=== PATIENT | female | born 1995 | race Caucasian/White ===

== ENCOUNTER → 2018-08-06 14:08 | Outpatient (CLI) | payer SELFPAY ==
[2018-08-06 15:42] LABS: Hematocrit 41.2 % (37-47); Hemoglobin 13.6 g/dl (12.0-15.0)
[2018-08-06 16:17] LABS: Free T3 2.9 pg/mL (2.18-3.98); T4 Free Direct 1.08 ng/dL (0.76-1.46); Thyroid Stim Hormone (TSH) 0.56 uIU/mL (0.358-3.74)
== END ==
PROVIDERS: Visit Provider Obstetrics & Gynecology
DX: N92.6 Irregular menstruation, unspecified (principal)
CPT/HCPCS: 36415; 84439; 84443; 84481; 85014; 85018

== ENCOUNTER 2019-09-25 21:20 | Outpatient (CLI) | payer OTHER, SELFPAY ==
[2019-09-25 22:07] VITALS: BMI 36.3
--- NOTE | 2019-09-26 13:17 | OB.TRI.NOTE ---
- Problem List (1) 39 weeks gestation of Status: Acute (2) Uterine contractions during Status: Acute History of Present Illness Date of Service: 09/25/19 Was patient seen by the physician?: No Reason For Visit: RULE OUT LABOR Date of Service: 09/25/19 Final MANDIE: 10/01/19 Gestational age: 39 Weeks and 2 Days History of Present Illness: who presented with ctx's for r/o labor Allergies No Known Allergies Allergy (Verified 09/25/19 22:09) NST - FHR Rate Baby A Baseline: 125 Variability:: Moderate Accelerations:: 15 x 15 Decelerations:: None NST Reactive:: Yes Uterine Activity:: Irritability with occasional ctx's Impression/Plan - Labor ruled out - NST reactive - D/c home with return precautions
== END 2019-09-25 23:47 | disposition home or self-care (01) ==
LOC: WPOUT 21:56 → WP 21:57
PROVIDERS: Referring Provider Obstetrics & Gynecology; Visit Provider Obstetrics & Gynecology
DX: O47.1 False labor at or after 37 completed weeks of gestation (principal); Z3A.39 39 weeks gestation of pregnancy
CPT/HCPCS: 59025; 59050; 99218; G0378

== ENCOUNTER 2019-10-05 05:25 | Inpatient (IN) | payer OTHER, SELFPAY ==
[2019-10-05 06:21] VITALS: BMI 36.8
[2019-10-05] MEDS: Lactated Ringers 1,000 ML 50 ML IV (06:25)
[2019-10-05] MEDS: Lactated Ringers 500 ML 999 ML IV (06:27)
[2019-10-05 06:38] LABS: Absolute Lymphocyte Count 2.51 X10^3/uL (0.83-4.51); Absolute Neutrophil Count 9.5 X10^3/uL (2.0-7.7); Basophil# 0.04 X10^3/uL; Basophil% 0.3 % (0-1); Eosinophils% 0.7 % (0-5); Hematocrit 36.5 % (37-47); Hemoglobin 11.7 g/dL (12.0-15.0); Lymphocyte # 2.51 X10^3/ul (4.0); Lymphocyte % 18.6 % (19-41); Mean Corp Hgb Conc 32.1 g/dL (32-36); Mean Corpuscular Hgb 23.9 pg (27.0-32.0); Mean Corpuscular Volume 74.5 fL (81-99); Mean Platelet Vol. 10.7 fl (6.2-12.0); Monocyte# 1.22 X10^3/uL; NRBC Flagged by Analyzer 0 % (0-5); Neutrophil # 9.52 X10^3/uL (2.7-7.7); Neutrophil % 70.4 % (47-70); Platelet Count 270 K/mm3 (150-450); RBC Distribution Width CV 14.1 % (11.6-14.6); RBC Distribution Width SD 37.6 fl (35.1-43.9); White Blood Count 13.5 K/mm3 (4.4-11.0)
[2019-10-05] MEDS: miSOPROStol 25 MCG TABLET PO ×2 (09:59→14:13)
--- NOTE | 2019-10-05 10:12 | HP.PCM_ITS ---
- Problem List (1) 40 weeks gestation of Status: Acute (2) Primiparous Status: Acute History Date of Admission: 10/05/19 Final MANDIE: 10/01/19 Gestational age: 40 Weeks and 4 Days History of this : This is a 23 year-old, G 1, P 0, at 40 weeks gestational age who presents with ctx's q 2-3 min. Ctx's have lessened since coming in and she is now comfortable. No vb, lof. Good FM. She is scheduled for an induction tomorrow. Medical History: Medical History (Last Updated 10/05/19 @ 10:13 by Crys Power DO) Anemia D64.9 History of concussion Z87.820 History of tooth extraction K08.409 Allergies No Known Allergies Allergy (Verified 10/05/19 07:24) Home Medications: Home Medications Prenatabs FA 1 tab PO DAILY 09/25/19 Smoking Status: Never smoker Number of Fetus(es): 1 NST - FHR Rate Baby A NST Reactive:: Yes FHR Category:: Category I Uterine Activity:: Occasional ctx's History Past Pregnancies: Past Pregnancies Delivery Date Name GA/ Weeks Outcome Route Wt Infant Sex Labor Length Anesthesia Delivery Location Provider FOB Labs: GBS pos 1 hr GTT 77 Hgb 11.7 A positive Negative antibody screen Syphilis NR RI Hep B neg HIV NR UDS neg GC/CT neg Urine cx neg Expected Delivery Method: Spontaneous Vaginal Review of Systems Gynecological: Reports: Vaginal discharge - Mucous, - - +Ctx's Physical Exam General: Alert, No apparent distress, - - Comfortable HEENT: Atraumatic Lungs: Normal air movement Abdomen: Soft, Non Tender, Gravid Extremities:: No edema Neurological: Neuro grossly intact VELOCITY [employer]ER: Normal external genitalia Estimated gestational size: Appropriate for gestational size Presentation: Cephalic Cervix Dilation (cm): 1.5 Station: -2 Effacement (%): 70 Assessment/Plan All Active Problems 39 weeks gestation of (Acute) Uterine contractions during (Acute) 40 weeks gestation of (Acute) Primiparous (Acute) This is a 23 year-old, G 1, P 0, at 40 weeks gestational age who presents with ctx's. Likely in early labor. She is scheduled for an induction tomorrow night. Patient desires to stay today for an induction. - Admit for routine intrapartum care - Will start Cytotec - GBS positive, will start PCN with cervical change - Pt does not want epidural. Desires tub and nitrous oxide for pain control - Pelvis adequate and fetus palpates AGA, anticipate vaginal delivery
[2019-10-05] MEDS: 0.9% Saline Lock 10 ML Syringe IV (18:14)
[2019-10-05] MEDS: Oxytocin 30 units/NS 500 ml 30 UNITS/500 ML IV.SOLN IV (18:33)
[2019-10-06] MEDS: Lactated Ringers 500 ML 999 ML IV ×3 (03:03→19:38)
[2019-10-06] MEDS: Lactated Ringers 1,000 ML 200 ML IV ×3 (09:42→23:45)
--- NOTE | 2019-10-06 10:08 | PCM.PN.BLA ---
Progress Note Cvx remains 3 cm after 2 doses of cytotec, and pit at 18 mu/min. Pt has been refusing AROM. Discussed with patient options: either AROM to place IUPC, or discharge home. Reviewed r/b of both options. Gave her time to discuss with family members. She desires AROM. Cvx /-2, head well applied. AROM performed for clear fluid. IUPC and FSE placed. Category 1 tracing.
[2019-10-06] MEDS: Nalbuphine 10 MG/ML Ampul IV (11:25)
[2019-10-06] MEDS: fentaNYL-bupivacaine (epidural) 100 ML BAG EPIDURAL ×4 (12:03→22:30)
--- NOTE | 2019-10-06 16:11 | PCM.PN.BLA ---
Progress Note At bedside to check on pt. She is sleeping comfortably with epidural in place. Last cervical exam was per RN and pt is 8 cm dilated. Continue current management.
[2019-10-06] MEDS: 0.9% Saline Lock 10 ML Syringe IV (16:17)
--- NOTE | 2019-10-06 16:30 | PCM.PN.BLA ---
Progress Note Pt with prolonged decel. At bedside to assess, Cvx 9/100/0. Pt placed in right lateral position. Anticipate vaginal delivery.
[2019-10-07] VITALS (31 sets, daily range): BP systolic 106–130; BP diastolic 57–82; PULSE 61–106; RESP 14–18; TEMP 36.1–37; O2SAT 93–99
[2019-10-07] MEDS: Ondansetron 4 MG/2 ML Vial IV
[2019-10-07] MEDS: Sodium Citrate/Citric Acid 30 ML UDC PO (00:12)
--- NOTE | 2019-10-07 00:30 | PCM.PN.BLA ---
Progress Note Delayed entry. At bedside to check pt and she remains 9 cm dilated. Recommended section given failure to progress and intolerance to labor. Reviewed risks, benefits, alternatives and patient consented and desires to proceed with a section.
[2019-10-07] MEDS: Cefazolin 2 GM in 0.9% Normal Saline 100 ML IV (00:39)
--- NOTE | 2019-10-07 02:01 | PCM.OPRPT ---
Problem List (1) 40 weeks gestation of Status: Acute (2) Primiparous Status: Acute Report of Operation Date of Procedure: 10/07/19 Pre-Operative Diagnosis: 40 week gestation, primparous patient, elective induction Post-Operative Diagnosis: As above, failure to progress in labor, intolerance to labor Surgery/Procedure Performed:: PLTCS via pfannesnstiel incision Description of Surgical Findings:: Viable male in cephalic presentation. Clear fluid. Normal-appearing uterus, bilateral tubes, bilateral ovaries. Type of Anesthesia:: Epidural Special Medications: None Specimen's removed: Placenta Drains: Dias Estimated Blood Loss (mL): 900 Fluids Replaced: 1999 Description of Procedure: Indications: Patient is a G1, P0 who presented at 40 weeks gestation for an elective induction per patient request. Her induction was started with Cytotec, followed by Pitocin. She progressed to 9 cm dilated. heart tracing showed occasional late decelerations, requiring the Pitocin to be turned off twice. She remained 9 cm dilated for about 6 hours. Given failure to progress, a section was recommended. Procedure: Patient was taken to the operating room where she was placed in dorsal position with a leftward tilt. She was prepped and draped in the usual sterile fashion. Epidural anesthesia was found to be adequate. A Pfannenstiel skin incision was made with a scalpel and carried down to the underlying layer of fascia using the Bovie. The fascia was incised in the midline and extended laterally using Byrne scissors. The fascia was dissected off of the rectus muscles. The rectus muscles were in the midline. The peritoneum was entered bluntly. A bladder flap was created. A low transverse incision was made on the uterus with the scalpel. The infant was delivered in cephalic presentation without any force or delay. Viable male infant was delivered atraumatically, and cord was clamped and cut after a 60 second delay. The was handed off to the nursery staff. The uterus was exteriorized and cleared of all clot and debris. The uterine incision was closed with Vicryl in a running locked fashion noting an extension into the cervix along the patient's right side. Several additional aburam-zo-zldoa sutures were placed to achieve hemostasis. The uterus was placed back into the abdomen. Hemostasis was again noted and Joseline was placed over the incision. Peritoneum was unable to be reapproximated. The fascia was closed in usual fashion with Vicryl in a running layer. The subcutaneous space was irrigated and made hemostatic. The subcutaneous space was reapproximated using Vicryl in a running fashion. The skin was closed in a subcuticular fashion. Steri-Strips and a dressing were placed. Instrument counts were correct. The patient tolerated the procedure well was taken to the recovery room in good condition. Grafts/Implants Used: None - Complications None - Admit VTE Documentation VTE Present on Admission: No VTE Mechan Device Prophylaxis: SCD's Delivery Classification: MARY JANE Gestational age: Indications for : Failure to Progress Amniotic Membrane Rupture Type: Artificial Amniotic Fluid Description: Clear Drain: Dias to straight drain Cord Entanglement: None Cord Vessel Description: 3 Vessels Esitmated Blood Loss (ml): 900 Gender: Male Delayed cord clamping: Yes Antibiotic Given: Ancef 2 grams IV x1, Zithromax 500 mg/5 mL X1 Pt instructed on risks of surgery: Bleeding, Infection, Injury to surrounding structure(s) including bowel and bladder Complications: None
[2019-10-07] MEDS: Methylergonovine 0.2 MG/ML Ampul IM (02:26)
[2019-10-07] MEDS: Oxytocin 30 units/NS 500 ml 30 UNITS/500 ML IV.SOLN 167 UNITS IV (02:43)
[2019-10-07] MEDS: Lactated Ringers 1,000 ML 100 ML IV (05:25)
--- NOTE | 2019-10-07 06:19 | NURSING ---
Pt able to maintain O2 saturation above 90% when awake but when sleeping, O2 saturation drops to 88%. Improves when pt awakened and takes deep breath. O2 2L NC placed on pt.
--- NOTE | 2019-10-07 07:28 | NURSING ---
Epidural catheter removed with blue tip intact.
[2019-10-07] MEDS: Ketorolac 30 MG/ML Syringe IV ×3 (08:52→20:48)
[2019-10-07] MEDS: Enoxaparin 40 MG/0.4 ML Syringe SC (15:20)
--- NOTE | 2019-10-07 18:03 | NURSING ---
pt straight cath for 700 cc
[2019-10-07] MEDS: 0.9% Saline Lock 10 ML Syringe IV (20:48)
[2019-10-08 01:00] VITALS: PULSE 94; RESP 16; O2SAT 96
[2019-10-08] MEDS: Ketorolac 30 MG/ML Syringe IV ×3 (02:38→15:30)
[2019-10-08] MEDS: 0.9% Saline Lock 10 ML Syringe IV ×2 (02:38→07:59)
[2019-10-08 03:22] VITALS: BP 102/55; PULSE 95; RESP 18; TEMP 37; O2SAT 97
[2019-10-08 04:00] LABS: Hematocrit 28.7 % (37-47); Mean Corp Hgb Conc 31.4 g/dL (32-36); Mean Corpuscular Hgb 23.3 pg (27.0-32.0); Mean Corpuscular Volume 74.4 fL (81-99); Mean Platelet Vol. 10.5 fl (6.2-12.0); Platelet Count 195 K/mm3 (150-450); RBC Distribution Width CV 14.7 % (11.6-14.6); RBC Distribution Width SD 38.8 fl (35.1-43.9); Red Blood Count 3.86 M/mm3 (4.2-5.4); White Blood Count 17.1 K/mm3 (4.4-11.0)
[2019-10-08 07:50] VITALS: BP 110/67; PULSE 78; RESP 18; TEMP 36.7; O2SAT 99
--- NOTE | 2019-10-08 08:37 | PCM.PN.OB ---
Patient Problems: Active and Suspected Problems (Last Updated 10/05/19 @ 10:13 by Crys Power DO) 40 weeks gestation of (Acute) Primiparous (Acute) Subjective: Patient doing well. Pain is controlled with Toradol. She is ambulating and voiding without difficulty. Lochia normal. She is breast-feeding. She denies lightheadedness, dizziness, chest pain, shortness of breath, leg pain. - Physical Exam Vitals/I&O's: Vital Signs Temp Pulse Resp BP Pulse Ox 98.0 F 78 18 110/67 99 10/08/19 07:50 10/08/19 07:50 10/08/19 07:50 10/08/19 07:50 10/08/19 07:50 Oxygen Flow Rate (L/min) 2 Oxygen Delivery Method Room Air Weight: 242 lb Body Mass Index (BMI) 36.8 Intake and Output for Last 24 Hours 10/06/19 10/07/19 10/08/19 23:59 23:59 23:59 Intake Total 5501.14 / 5501.14 1644.80 / 1644.80 Output Total 900 / 900 1950 / 1950 Balance 4601.14 / 4601.14 -305.20 / -305.20 General: Alert, No apparent distress HEENT: Atraumatic Abdomen: - - No assessed as was sleeping on maternal abdomen Extremities: No edema, No Calf Tenderness Neurological: Neuro grossly intact Psych/Mental Status: Normal Affect, Appropriate Laboratory Results 10/08/19 03:30: WBC 17.1 H, RBC 3.86 L, Hgb 9.0 L, Hct 28.7 L, MCV 74.4 L, MCH 23.3 L, MCHC 31.4 L, RDW Std Deviation 38.8, RDW Coeff of Gee 14.7 H, Plt Count 195, MPV 10.5 Current Medications Acetaminophen (Tylenol) 1,000 mg PO Q8H PRN PRN Reason: Pain Score 1-3/10 Bisacodyl (Dulcolax) 10 mg RECTAL UD PRN PRN Reason: If no BM Enoxaparin Sodium (Lovenox) 40 mg SC DAILY EUN Last Admin: 10/07/19 15:20 Dose: 40 mg Documented by: Hydrocortisone (Hytone) 1 applic TOPICAL TID PRN PRN; Protocol PRN Reason: Discomfort Naloxone HCl 4 mg/ Dextrose 504 mls @ 0 mls/hr IV .Q0M PRN; Protocol PRN Reason: Respiratory depression Ibuprofen (Motrin) 600 mg PO Q6H PRN PRN PRN Reason: Pain Score 1-3/10 Ketorolac Tromethamine (Toradol) 30 mg IV Q6H EUN Stop: 10/09/19 02:01 Last Admin: 10/08/19 07:59 Dose: 30 mg Documented by: Methylergonovine Maleate (Methergine) 0.2 mg IM X1 PRN PRN Reason: Uterine Atony Last Admin: 10/07/19 02:26 Dose: 0.2 mg Documented by: Naloxone HCl (Narcan) 0.02 mg IV Q1M PRN PRN Reason: RR <10 and pt unresponsive Ondansetron HCl (Zofran) 4 mg IV Q4H PRN PRN PRN Reason: Nausea Oxycodone HCl (Oxyir) 5 - 10 mg PO Q4H PRN PRN PRN Reason: Pain Score 4-10/10 Prochlorperazine Edisylate (Compazine Iv) 10 mg IV Q6H PRN PRN PRN Reason: NAUSEA Senna/Docusate Sodium (Senokot-S, [place]-Colace) 0 tablet PO DAILY PRN PRN Reason: Constipation Simethicone (Mylicon) 80 mg PO PCHS PRN PRN Reason: Indigestion/stomach pain Sodium Chloride () 5 - 15 ml IV UD PRN PRN Reason: SALINE FLUSH Last Admin: 10/08/19 07:59 Dose: 10 ml Documented by: Medical Necessity - Tobacco Use Smoking Status: Never smoker Assessment/Plan All Active Problems (Last Updated 10/05/19 @ 10:13 by Crys Power DO) 39 weeks gestation of (Acute) Uterine contractions during (Acute) 40 weeks gestation of (Acute) Primiparous (Acute) POD#1 s/p PLTCS for FTP in labor - Pt doing well - - Dispo: Routine PO care. Anticipate d/c home tomorrow
[2019-10-08] MEDS: Enoxaparin 40 MG/0.4 ML Syringe SC (12:34)
[2019-10-08 16:12] VITALS: BP 112/67; PULSE 86; RESP 16; TEMP 36.8
--- NOTE | 2019-10-08 17:12 | NURSING ---
This RN gave report to Renu Coreas RN at 1620 when she took over care for this pt.
[2019-10-08 20:00] VITALS: BP 113/79; PULSE 95; RESP 16; TEMP 36.8
[2019-10-08] MEDS: Ibuprofen 600 MG Tablet PO (21:45)
[2019-10-09 02:00] VITALS: BP 108/62; PULSE 62; RESP 16; TEMP 36.4
[2019-10-09 08:00] VITALS: BP 107/58; PULSE 56; RESP 16; TEMP 36.7
[2019-10-09] MEDS: Ibuprofen 600 MG Tablet PO (08:43)
--- NOTE | 2019-10-09 11:36 | PCM.PN.OB ---
Patient Problems: Active and Suspected Problems (Last Updated 10/05/19 @ 10:13 by Crys Power DO) 40 weeks gestation of (Acute) Primiparous (Acute) Subjective: Denies complaints - Physical Exam Vitals/I&O's: Vital Signs Temp Pulse Resp BP Pulse Ox 97.6 F L 62 16 108/62 99 10/09/19 02:00 10/09/19 02:00 10/09/19 02:00 10/09/19 02:00 10/08/19 07:50 Oxygen Flow Rate (L/min) 2 Oxygen Delivery Method Room Air Weight: 242 lb Body Mass Index (BMI) 36.8 Intake and Output for Last 24 Hours 10/07/19 10/08/19 10/09/19 23:59 23:59 23:59 Intake Total 1644.80 / 1644.80 Output Total 1950 / 1950 Balance -305.20 / -305.20 General: Alert, Oriented x3 Abdomen: Soft, Non Tender, Non-Distended - ff mid & below umb; inc - bandage c/d/i Extremities: No Calf Tenderness Current Medications Acetaminophen (Tylenol) 1,000 mg PO Q8H PRN PRN Reason: Pain Score 1-3/10 Bisacodyl (Dulcolax) 10 mg RECTAL UD PRN PRN Reason: If no BM Enoxaparin Sodium (Lovenox) 40 mg SC DAILY EUN Last Admin: 10/09/19 11:27 Dose: Not Given Documented by: Hydrocortisone (Hytone) 1 applic TOPICAL TID PRN PRN; Protocol PRN Reason: Discomfort Naloxone HCl 4 mg/ Dextrose 504 mls @ 0 mls/hr IV .Q0M PRN; Protocol PRN Reason: Respiratory depression Ibuprofen (Motrin) 600 mg PO Q6H PRN PRN PRN Reason: Pain Score 1-3/10 Last Admin: 10/09/19 08:43 Dose: 600 mg Documented by: Methylergonovine Maleate (Methergine) 0.2 mg IM X1 PRN PRN Reason: Uterine Atony Last Admin: 10/07/19 02:26 Dose: 0.2 mg Documented by: Naloxone HCl (Narcan) 0.02 mg IV Q1M PRN PRN Reason: RR <10 and pt unresponsive Ondansetron HCl (Zofran) 4 mg IV Q4H PRN PRN PRN Reason: Nausea Oxycodone HCl (Oxyir) 5 - 10 mg PO Q4H PRN PRN PRN Reason: Pain Score 4-10/10 Prochlorperazine Edisylate (Compazine Iv) 10 mg IV Q6H PRN PRN PRN Reason: NAUSEA Senna/Docusate Sodium (Senokot-S, [place]-Colace) 0 tablet PO DAILY PRN PRN Reason: Constipation Simethicone (Mylicon) 80 mg PO PCHS PRN PRN Reason: Indigestion/stomach pain Sodium Chloride () 5 - 15 ml IV UD PRN PRN Reason: SALINE FLUSH Last Admin: 10/08/19 07:59 Dose: 10 ml Documented by: Medical Necessity - Tobacco Use Smoking Status: Never smoker Assessment/Plan All Active Problems (Last Updated 10/05/19 @ 10:13 by Crys Power DO) 39 weeks gestation of (Acute) Uterine contractions during (Acute) 40 weeks gestation of (Acute) Primiparous (Acute) POD#2 D/c home
--- NOTE | 2019-10-09 11:52 | DCINST_ITS ---
Discharge Diet: No Restrictions Discharge Activity: May Drive, May Shower May resume sexual activity in: 6 weeks Weight Bearing Status: Weight bearing as tolerated Call your doctor if your incision/area has: Continuous Slow Oozing, Sudden Increased Bleeding, Increased Pain/ Swelling, Increased Redness, Foul Smelling Discharge, Swelling at the incision site Suture Line Care: Avoid Pulling/Pushing, Avoid Pinching/Bending Additional Instructions: If you experience any of the following, contact your healthcare provider. * Bleeding that soaks a pad every hour for 2 hours * Fever 100.4 or higher * Unrelieved incision or abdominal pain * Swelling, redness, discharge or bleeding from your incision or episiotomy site * Your incision begins to separate * Problems urinating (including inability to urinate or burning while urinating). * Visual changes * Severe headache * Flu-like symptoms * Pain or redness in one of both of your breasts * Pain, warmth, tenderness or swelling in your legs, especially the calf area * Frequent nausea and vomiting * Symptoms of depression or anxiety If you experience any of the following, call 911 or go to the nearest Emergency Room. * Chest pain * Problems breathing * Seizure activity * Partial or complete paralysis of a body part, slurred speech, weakness or drooping of the face, or a sudden inability to walk or hold your balance Allergies/Adverse Reactions: Allergies No Known Allergies Allergy (Verified 10/05/19 07:24) Medications to take at Discharge Prenatabs FA 1 tab PO DAILY 09/25/19 Acetaminophen [Tylenol] 1,000 mg PO Q8H PRN tab 10/09/19 Ferrous Sulfate [Slow Release Iron] 140 mg PO DAILY #30 tablet.er 10/09/19 Ibuprofen [Motrin] 600 mg PO Q6H PRN PRN tab 10/09/19 The following prescriptions were given: Ferrous Sulfate [Slow Release Iron] 140 mg PO DAILY #30 tablet.er Transmission Status: Received by [facility]/pharmacy #[id number] Follow-Up: Call to make an appointment with your doctor for an incision check in 1-2 weeks. You will also need a 6 week post- follow up appointment. Test results from this visit will be discussed in further detail at your follow- up appointment, if applicable. Primary Care Physician: Kayleigh Mora MD [Primary Care Provider] -
--- NOTE | 2019-10-09 11:52 | PCM.DCCSEC ---
Discharge Diet: No Restrictions Discharge Activity: May Drive, May Shower May resume sexual activity in: 6 weeks Weight Bearing Status: Weight bearing as tolerated Call your doctor if your incision/area has: Continuous Slow Oozing, Sudden Increased Bleeding, Increased Pain/ Swelling, Increased Redness, Foul Smelling Discharge, Swelling at the incision site Suture Line Care: Avoid Pulling/Pushing, Avoid Pinching/Bending Additional Instructions: If you experience any of the following, contact your healthcare provider. Bleeding that soaks a pad every hour for 2 hours Fever 100.4 or higher Unrelieved incision or abdominal pain Swelling, redness, discharge or bleeding from your incision or episiotomy site Your incision begins to separate Problems urinating (including inability to urinate or burning while urinating). Visual changes Severe headache Flu-like symptoms Pain or redness in one of both of your breasts Pain, warmth, tenderness or swelling in your legs, especially the calf area Frequent nausea and vomiting Symptoms of depression or anxiety If you experience any of the following, call 911 or go to the nearest Emergency Room. Chest pain Problems breathing Seizure activity Partial or complete paralysis of a body part, slurred speech, weakness or drooping of the face, or a sudden inability to walk or hold your balance Allergies/Adverse Reactions: Allergies No Known Allergies Allergy (Verified 10/05/19 07:24) Medications to take at Discharge Prenatabs FA 1 tab PO DAILY 09/25/19 Acetaminophen [Tylenol] 1,000 mg PO Q8H PRN tab 10/09/19 Ferrous Sulfate [Slow Release Iron] 140 mg PO DAILY #30 tablet.er 10/09/19 Ibuprofen [Motrin] 600 mg PO Q6H PRN PRN tab 10/09/19 The following prescriptions were given: Ferrous Sulfate [Slow Release Iron] 140 mg PO DAILY #30 tablet.er Transmission Status: Received by [facility]/pharmacy #[id number] Follow-Up: Call to make an appointment with your doctor for an incision check in 1-2 weeks. You will also need a 6 week post- follow up appointment. Test results from this visit will be discussed in further detail at your follow-up appointment, if applicable. Primary Care Physician: Kayleigh Mora MD [Primary Care Provider] -
== END 2019-10-09 12:20 | disposition home or self-care (01) | DRG 788 ==
PROVIDERS: Admitting Provider Obstetrics & Gynecology; Referring Provider Obstetrics & Gynecology; Visit Provider Obstetrics & Gynecology
DX: O76 Abnormality in fetal heart rate and rhythm complicating labor and delivery (principal); O62.2 Other uterine inertia; Z3A.40 40 weeks gestation of pregnancy; Z37.0 Single live birth; O99.02 Anemia complicating childbirth; D64.9 Anemia, unspecified; O99.824 Streptococcus B carrier state complicating childbirth; Z3A.32 32 weeks gestation of pregnancy
CPT/HCPCS: 59025; 59050; 85025; 85027; 86850; 86900; 86901; 99218; 99251; J7120; A4216; G0378; G0463; J2405

== ENCOUNTER 2022-01-31 14:39 | Emergency (ER) | payer SELFPAY ==
[2022-01-31 14:40] VITALS: BP 117/75; PULSE 59; RESP 14; TEMP 36.3; O2SAT 98; BMI 34.2
[2022-01-31 15:05] LABS: Bedside Glucose 105 mg/dL (74-106)
--- NOTE | 2022-01-31 15:34 | EX.ED.DYSGE1 ---
HPI History of Present Illness Chief Complaint: Dizziness Informant: patient and spouse/S.O. Onset/Context/Timing Onset: Days (4) Context: Gradual Onset Timing: Continuous Quality: Lightheaded Location: Head Worsened by: Nothing Relieved by: Sleeping Associated Symptoms Associated Symptoms: Confusion, fatigue, sleepiness Narrative Narrative: Patient presents with dizziness, confusion, fatigue, and some shortness of breath that has been getting worse over the past 4 days. Patient states her dizziness feels like she is lightheaded whenever she is sitting down or laying down. Patient states it is a spinning sensation whenever she stands up to walk. Patient states she feels better after sleeping. Patient states that she feels tired and sleepy all the time. Patient admits to a headache. Patient states she has been taking Tylenol for this. Patient states she has been taking 1000 mg of Tylenol every 6 hours for her headaches. states that the patient has been confused at times as well. [facility] Medical History Anemia History of concussion Home Medications Prenatabs FA 1 tab PO DAILY 09/25/19 [History Last Taken 10/04/19 08:00] acetaminophen 1,000 mg PO Q8H PRN tab 10/09/19 [Rx Last Taken Unknown] ferrous sulfate 140 mg PO DAILY #30 tablet.er 10/09/19 [Rx Last Taken Unknown] ibuprofen 600 mg PO Q6H PRN PRN tab 10/09/19 [Rx Last Taken Unknown] Allergy/AdvReac Type Severity Reaction Status Date / Time No Known Allergies Allergy Verified 01/31/22 14:44 Surgical History History of tooth extraction Social History Smoking Status: Never smoker ROS ROS ED Constitutional Constitutional ED: Denies chills or fever(s) Eyes Eyes: Denies blurry vision or change in vision ENT ENT ED: Denies rhinorrhea or sore throat Cardiovascular Cardiovascular: Denies chest pain or palpitations Respiratory/Chest Respiratory/Chest: Denies cough or dyspnea Gastrointestinal Gastrointestinal: Reports nausea; Denies vomiting Genitourinary Genitourinary ED: Denies dysuria or hematuria Musculoskeletal Musculoskeletal: Reports back pain; Denies neck pain Integumentary Denies abscess or rash Neurologic Neurologic: Reports headache(s); Denies weakness Allergic/Immunologic Allergic/Immunologic ED: Denies mouth swelling or urticaria EXAM Physical Exam Const Vital Signs: 01/31/22 14:40 01/31/22 14:50 01/31/22 15:46 Temperature 97.3 F L Temperature Source Temporal Pulse Rate 59 L Pulse Rate [Lying] 70 Pulse Rate [Sitting (for 1 minute prior to obtaining)] 62 Pulse Rate [Standing (for 1 minute prior to obtaining)] 97 Respiratory Rate 14 Respiratory Effort Normal Non-Labored Respiratory Pattern Normal Blood Pressure 117/75 Blood Pressure [Lying] 98/69 Blood Pressure [Sitting (for 1 minute prior to obtaining)] 114/77 Blood Pressure [Standing (for 1 minute prior to obtaining)] 126/104 H Blood Pressure Mean 89 Blood Pressure Mean [Lying] 78 Blood Pressure Mean [Sitting (for 1 minute prior to obtaining)] 89 Blood Pressure Mean [Standing (for 1 minute prior to obtaining)] 111 Pulse Ox 98 Oxygen Delivery Method Room Air 01/31/22 16:49 01/31/22 18:00 Temperature Temperature Source Pulse Rate 54 L 54 L Pulse Rate [Lying] Pulse Rate [Sitting (for 1 minute prior to obtaining)] Pulse Rate [Standing (for 1 minute prior to obtaining)] Respiratory Rate 18 18 Respiratory Effort Respiratory Pattern Blood Pressure 114/82 H Blood Pressure [Lying] Blood Pressure [Sitting (for 1 minute prior to obtaining)] Blood Pressure [Standing (for 1 minute prior to obtaining)] Blood Pressure Mean 92 Blood Pressure Mean [Lying] Blood Pressure Mean [Sitting (for 1 minute prior to obtaining)] Blood Pressure Mean [Standing (for 1 minute prior to obtaining)] Pulse Ox 99 99 Oxygen Delivery Method Room Air Room Air Positive well nourished and well developed General Appearance ED: well developed HEENT Reports moist mucous membranes Neck supple and no JVD Resp normal respiratory effort and clear to auscultation bilaterally Cardio regular rate, regular rhythm and no murmurs GI normal to inspection, nondistended, normoactive bowel sounds and non-tender GI Narrative: There is a gravid uterus. Palpation: soft Extremity normal to inspection General Extremety ED: Negative for edema or tenderness General Extremity: Negative for edema Neuro oriented x3, CN's II-XII intact bilaterally and no sensory deficits noted Sensorium / Orientation: alert Motor Exam: strength 5/5 throughout Psych mental status grossly normal Skin no rashes or lesions noted MDM MDM MDM Narrative Medical decision making narrative: Patient was given IV fluids. CBC shows a slight anemia with a hemoglobin of 11.4 and hematocrit 35 0.0. Platelets were normal. Comprehensive metabolic profile shows a slightly elevated alkaline phosphatase of 120 and AST was low at 13. The remainder was within normal limits. Urinalysis does not show any evidence of urinary tract infection. Acetaminophen level was normal at 4.1. Fingerstick blood sugar was normal at 105. Patient is more awake and alert. Patient feels better. I discussed the findings with the patient and her . They are agreeable to go home. Case was also discussed with Anna Aguirre from [facility] [employer]. She will follow-up with the patient as scheduled this week. Patient and her understand and are agreeable with the plan. All questions were answered. Lab Data Attestation: I reviewed the patient's lab results. Labs: Laboratory Results - last 24 hr 01/31/22 01/31/22 01/31/22 15:00 15:35 15:35 WBC 9.6 RBC 4.46 Hgb 11.4 L Hct 35.0 L MCV 78.5 L MCH 25.6 L MCHC 32.6 RDW Std Deviation 39.0 RDW Coeff of Gee 13.7 Plt Count 266 MPV 11.1 Immature Gran % (Auto) 0.600 Neut % (Auto) 71.2 H Lymph % (Auto) 20.8 [place] % (Auto) 6.7 Eos % (Auto) 0.4 Baso % (Auto) 0.3 Absolute Neuts (auto) 6.8 Absolute Lymphs (auto) 1.99 Nucleated RBC % 0 Sodium 136 Potassium 3.8 Chloride 106 Carbon Dioxide 25.0 Anion Gap 5 BUN 6 L Creatinine 0.61 Estim Creat Clear Calc 140.98 Est GFR (MDRD) Af Amer 152 Est GFR (MDRD) Non-Af 125 BUN/Creatinine Ratio 9.8 L Glucose 87 Calcium 8.9 Total Bilirubin 0.30 AST 13 L ALT 17 Alkaline Phosphatase 120 H Total Protein 6.5 Albumin 2.7 L Globulin 3.8 Albumin/Globulin Ratio 0.7 L Urine Color Urine Clarity Urine pH Ur Specific [place] Urine Protein Urine Glucose (UA) Urine Ketones Urine Occult Blood Urine Nitrite Urine Bilirubin Urine Urobilinogen Ur Leukocyte Esterase Urine RBC Urine WBC Ur Squamous Epith Cells Urine Bacteria Urine Mucus Acetaminophen POC Glucose 105 01/31/22 01/31/22 15:35 16:10 WBC RBC Hgb Hct MCV MCH MCHC RDW Std Deviation RDW Coeff of Gee Plt Count MPV Immature Gran % (Auto) Neut % (Auto) Lymph % (Auto) [place] % (Auto) Eos % (Auto) Baso % (Auto) Absolute Neuts (auto) Absolute Lymphs (auto) Nucleated RBC % Sodium Potassium Chloride Carbon Dioxide Anion Gap BUN Creatinine Estim Creat Clear Calc Est GFR (MDRD) Af Amer Est GFR (MDRD) Non-Af BUN/Creatinine Ratio Glucose Calcium Total Bilirubin AST ALT Alkaline Phosphatase Total Protein Albumin Globulin Albumin/Globulin Ratio Urine Color Yellow Urine Clarity Clear Urine pH 6.5 Ur Specific [place] 1.010 Urine Protein Negative Urine Glucose (UA) Normal Urine Ketones Negative Urine Occult Blood Negative Urine Nitrite Negative Urine Bilirubin Negative Urine Urobilinogen Normal Ur Leukocyte Esterase Negative Urine RBC 0 SEEN Urine WBC 0 SEEN Ur Squamous Epith Cells 0-5 SEEN Urine Bacteria 0 SEEN Urine Mucus 0 SEEN Acetaminophen 4.1 L POC Glucose Discharge Plan Triage Chief Complaint: Dizziness ED Provider: Lisandro Oliveira Dx/Rx/DC Orders Clinical Impression: Episode of confusion, Instructions: ED Confusion Prescriptions: No Action acetaminophen 500 MG tablet 1,000 mg PO Q8H PRN (Reason: Pain Score 1-3/10) RF: 0 ibuprofen 600 MG tablet 600 mg PO Q6H PRN PRN (Reason: Pain Score 1-3/10) RF: 0 ferrous sulfate 140 MG tablet extended release 140 mg PO DAILY Qty: 30 RF: 1 Prenatabs FA 1 tab PO DAILY RF: 0 Primary Care Provider: Neel Mora Referrals: Anna Aguirre CNM [Certified Nurse Pediatric Sports Medicine Specialist] - Keep Rahel appointment Neel Mora MD [Primary Care Provider] - 5-7 Days Disposition Disposition: Home, Self Care
[2022-01-31 15:46] VITALS: BP 114/77; BP 126/104; BP 98/69; PULSE 62; PULSE 70; PULSE 97
[2022-01-31 15:47] LABS: Absolute Lymphocyte Count 1.99 X10^3/uL (0.83-4.51); Absolute Neutrophil Count 6.8 X10^3/uL (2.0-7.7); Basophil# 0.03 X10^3/uL; Basophil% 0.3 % (0-1); Eosinophil# 0.04 X10^3/uL; Eosinophils% 0.4 % (0-5); Hemoglobin 11.4 g/dL (12.0-15.0); Lymphocyte # 1.99 X10^3/ul (0.83-4.51); Lymphocyte % 20.8 % (19-41); Mean Corp Hgb Conc 32.6 g/dL (32-36); Mean Corpuscular Hgb 25.6 pg (27.0-32.0); Mean Corpuscular Volume 78.5 fL (81-99); Mean Platelet Vol. 11.1 fl (6.2-12.0); Monocyte# 0.64 X10^3/uL; Monocyte% 6.7 % (0-10); NRBC Flagged by Analyzer 0 % (0-5); Neutrophil # 6.83 X10^3/uL (2.7-7.7); Neutrophil % 71.2 % (47-70); Platelet Count 266 K/mm3 (150-450); RBC Distribution Width CV 13.7 % (11.6-14.6); Red Blood Count 4.46 M/mm3 (4.2-5.4); White Blood Count 9.6 K/mm3 (4.4-11.0)
[2022-01-31 16:07] LABS: ALB/GLOB Ratio 0.7 RATIO (0.9-2.4); AST(SGOT) 13 U/L (15-37); Alanine Aminotransfer ALT/SGPT 17 U/L (13-56); Albumin, Serum 2.7 g/dL (3.2-5.0); Alkaline Phosphatase 120 U/L (45-117); Anion Gap 5 (5-15); BUN 6 mg/dL (7-18); BUN/Creat Ratio 9.8 RATIO (10-20); Calcium,Total 8.9 mg/dL (8.5-10.1); Chloride 106 mmol/L (98-107); Creatinine, Serum 0.61 mg/dL (0.55-1.02); EST Glomerular Filtration Rate 125 mL/min (>60); Est Glom Filt Rate - Afr Amer 152 mL/min (>60); Estimated Creatinine Clearance 140.98 ml/min; Globulin 3.8 g/dL (2.2-4.2); Glucose 87 mg/dL (74-106); Potassium 3.8 mmol/L (3.5-5.1); Protein, Total 6.5 g/dL (6.4-8.2); Sodium Level 136 mmol/L (136-145)
[2022-01-31] MEDS: 0.9% Normal Saline 1,000 ML 1000 ML IV (16:07)
[2022-01-31 16:30] LABS: Bacteria 0 SEEN /hpf (None Seen); Mucous, Urine 0 SEEN /hpf (<or=2+); Red Blood Cells-Urine 0 SEEN /hpf (0-5); White Blood Cells 0 SEEN /hpf (0-5)
[2022-01-31 16:32] LABS: Color, Urine Yellow (Yellow); Glucose, Dipstick Normal (Normal); Ketone-Dipstick Negative (Negative); Leukocyte Esterase-Dipstick Negative /ul (Negative); Nitrite-Dipstick Negative (Negative); Occult Blood-Urine Negative /ul (Negative); Protein-Dipstick Negative (Negative); Urine Bilirubin Dipstick Negative (Negative); Urine Clarity Clear (Clear); Urine Urobilinogen Normal (Normal); Urine pH 6.5 (5.0 - 8.0)
[2022-01-31 16:35] LABS: Acetaminophen (Tylenol) Level 4.1 ug/mL (10.0-30.0)
[2022-01-31 16:49] VITALS: PULSE 54; RESP 18; O2SAT 99
[2022-01-31 17:40] LABS: Squamous Epithelial Cells - UA 0-5 SEEN /hpf (5-10)
[2022-01-31 18:00] VITALS: BP 114/82; PULSE 54; RESP 18; O2SAT 99
--- NOTE | 2022-01-31 18:28 | ED.RN ---
Addendum entered by Brie Olguin 01/31/22 18:46: upon demaning a doppler, pt was asked if she was feeling ok as well as feeling movement from the baby. the pt states oh yes the baby is moving. attempted to reenforce to the pt that if she has any concerns at all regarding the baby that it is important to go to ob. pt states that the baby is moving like normal. heart tones were performed by this rn and pt and informed of heart rate. pt and were then ok with being d/c. per d/c instructions pt was to keep scheduled appt with conference assistant. this rn asked when the appt was and pt stated this monday. this rn stated that maybe they should call to see if they could get in a little earlier this week to help put their minds at ease and d/t them maybe being a little anxious. Original Note: has been demanding the entire time in ed. demanded that there be an ob nurse be at bedside while in ed, also demanded that an ob dr be at bedside with pt. spouse refused to be discharged until do a doppler, before they leave. explained to the spouse per ed dr. that everything was done earlier by conference assistant and that the conference assistant stated if they wanted all these extra tests done to call her. spouse states HOW ABOUT YOU JUST DO A DOPPLER, OK!
== END 2022-01-31 18:34 | disposition home or self-care (01) ==
PROVIDERS: Emergency Provider Emergency Medicine; PCP Family Medicine; Visit Provider Emergency Medicine
DX: O99.891 Other specified diseases and conditions complicating pregnancy (principal); R41.0 Disorientation, unspecified; O99.019 Anemia complicating pregnancy, unspecified trimester; Z3A.00 Weeks of gestation of pregnancy not specified
CPT/HCPCS: 80053; 80329; 81001; 82962; 85025; 96360; 99285; J7030; G0480

== ENCOUNTER 2022-02-10 18:15 | Inpatient (IN) | payer SELFPAY ==
[2022-02-10] VITALS (15 sets, daily range): BP systolic 118–137; BP diastolic 60–80; PULSE 56–103; RESP 18; TEMP 36.1–36.7; BMI 34.4
[2022-02-10 18:38] LABS: Absolute Lymphocyte Count 2.49 X10^3/uL (0.83-4.51); Absolute Neutrophil Count 7.7 X10^3/uL (2.0-7.7); Basophil# 0.03 X10^3/uL; Basophil% 0.3 % (0-1); Eosinophil# 0.03 X10^3/uL; Eosinophils% 0.3 % (0-5); Hematocrit 36.8 % (37-47); Hemoglobin 12.1 g/dL (12.0-15.0); Lymphocyte # 2.49 X10^3/ul (0.83-4.51); Lymphocyte % 22.3 % (19-41); Mean Corp Hgb Conc 32.9 g/dL (32-36); Mean Platelet Vol. 11.6 fl (6.2-12.0); Monocyte# 0.85 X10^3/uL; Monocyte% 7.6 % (0-10); NRBC Flagged by Analyzer 0 % (0-5); Neutrophil # 7.69 X10^3/uL (2.7-7.7); Neutrophil % 68.9 % (47-70); Platelet Count 303 K/mm3 (150-450); RBC Distribution Width CV 13.9 % (11.6-14.6); RBC Distribution Width SD 37.4 fl (35.1-43.9); Red Blood Count 4.84 M/mm3 (4.2-5.4); White Blood Count 11.2 K/mm3 (4.4-11.0)
[2022-02-10] MEDS: Oxytocin 30 units/NS 500 ml 30 UNITS/500 ML IV.SOLN 334 UNITS IV (19:00)
--- NOTE | 2022-02-10 19:28 | PCM.HP.OB ---
HPI - General General Date of Admission: 02/10/22 HPI Narrative BABS CALLES, is a 26 F at 40w0d who presents in labor at 8-9 cm. She was seen in the office earlier today for a routine appointment and was 1/t/h. Scheduled for a section on Monday per patient request if no spontaneous labor. Maternal Data Information MANDIE Calculator Estimated Delivery Date Method Current WG Current Estimate 02/10/22 LMP (Certain) 40w 0d PFSH PFSH Medical History Anemia History of concussion Home Medications Prenatabs FA 1 tab PO DAILY 09/25/19 [History Last Taken 10/04/19 08:00] acetaminophen 1,000 mg PO Q8H PRN tab 10/09/19 [Rx Last Taken Unknown] ferrous sulfate 140 mg PO DAILY #30 tablet.er 10/09/19 [Rx Last Taken Unknown] ibuprofen 600 mg PO Q6H PRN PRN tab 10/09/19 [Rx Last Taken Unknown] Allergy/AdvReac Type Severity Reaction Status Date / Time No Known Allergies Allergy Verified 01/31/22 14:44 Surgical History History of tooth extraction Social History Smoking Status: Never smoker History Elective abortions Hx Para 0 Spontaneous abortions Hx # Term Pregnancies Ectopic pregnancies Hx # Pregnancies Multiple births # of living children NST FHR Rate Baby A Baseline: 135 Variability:: Moderate Accelerations:: 15 x 15 Decelerations:: Variable FHR Category:: Category II Vital Signs Vital Signs Vital Signs: 02/10/22 18:35 02/10/22 18:37 02/10/22 19:10 Temperature 97.0 F L 97.9 F Temperature Source Temporal Temporal Pulse Rate 87 Blood Pressure 130/80 H BP Systolic 130 BP Diastolic 80 Labs Labs Labs: Blood Type A POSITIVE Antibody Screen NEGATIVE Hct 36.8 % (37-47) L Hgb 12.1 g/dL (12.0-15.0) Rhogam given: No Assessment & Plan (1) 40 weeks gestation of : PLAN: Patient presented precipitously delivering. In the office had a lengthy discussion regarding risk, benefits, alternatives to a trial of labor after section. She desired TOLAC if spontaneous labor, otherwise she was scheduled for a repeat section in a few days. She presented 8 to 9 cm dilated and precipitously delivered. See operative report for details. GBS negative. (2) Precipitous delivery: (3) History of section: (4) , delivered:
--- NOTE | 2022-02-10 19:40 | OP.PCM_ITS ---
Problems Associated Problem List Diagnoses (1) , delivered: (2) History of section: (3) Precipitous delivery: (4) 40 weeks gestation of : (5) Uterine contractions during : Report of Operation Date of Procedure: 02/10/22 Pre-Operative Diagnosis: 40 week gestation, history prior section, TOLAC Post-Operative Diagnosis: As above, Surgery/Procedure Performed:: Second degree perineal laceration Description of Surgical Findings:: VFI delivered in DESIREE position. Nuchal cord x 2 - loose. Apgars 9, 9. 2nd degree perineal laceration. Normal appearing and intact placenta with 3 VC. Surgeon: Crys Power Type of Anesthesia: None Special Medications: None Specimen's removed: Placenta Drains: None Estimated Blood Loss (mL): 150 Fluids Replaced: n/a Description of Procedure: Pt presented to office today without contractions and was noted to be 1 cm dilated. 1 or 2 hours after her visit she began having contractions. She presented to labor and delivery at 8 to 9 cm dilated. She precipitously delivered. Patient progressed to complete and was pushing. Head was delivered in left occiput anterior position, followed by anterior and posterior shoulder spontaneously, followed by the body of the infant without any force or delay. VFI was delivered easily and atraumatically. A loose nuchal cord x2 was noted an d the was delivered through the loose nuchal cord. The vigorous female was placed on the maternal abdomen. The cord was clamped and cut by the father the baby after 60 sec delay. Placenta was delivered with fundal massage and noted to be normal-appearing and intact with three-vessel cord. A second- degree perineal laceration was noted and repaired in usual fashion using 3-0 Vicryl. The fundus was firm and bleeding was hemostatic. A vaginal sweep was performed. Sponge and needle counts were correct. Grafts/Implants Used: None Complications None Admit VTE Documentation VTE Present on Admission: No
[2022-02-10] MEDS: Ibuprofen 600 MG Tablet PO (19:50)
[2022-02-10] MEDS: Benzocaine/Lanolin/Aloe Vera 1 SPRAY EACH TOPICAL (19:50)
[2022-02-11] MEDS: Ibuprofen 600 MG Tablet PO ×3 (01:56→15:44)
[2022-02-11 03:06] VITALS: BP 120/75; PULSE 58; RESP 16; TEMP 36.6
[2022-02-11] MEDS: Senna/Docusate Sodium 1 Tablet PO (06:42)
[2022-02-11 07:47] VITALS: BP 122/85; PULSE 77; RESP 16; TEMP 35.8
--- NOTE | 2022-02-11 08:06 | PCM.PROGNOTE ---
Subjective Subjective patient seen at bedside, doing well. Patient reports good pain control. lochia mild. Objective Data Objective Data Vital Signs: Vital Signs Temp Pulse Resp BP 96.5 F L 77 16 122/85 H 02/11/22 07:47 02/11/22 07:47 02/11/22 07:47 02/11/22 07:47 Oxygen Delivery Method Room Air Weight: 102.965 kg Body Mass Index (BMI) 34.4 Intake & Output: Intake and Output for Last 24 Hours 02/09/22 02/10/22 02/11/22 23:59 23:59 23:59 Intake Total 889.7 / 889.7 Output Total 300 / 300 1000 / 1000 Balance 589.7 / 589.7 -1000 / -1000 Lab / Micro Data Result Diagrams: 02/10/22 18:25 Labs: Laboratory Results - last 24 hr 02/10/22 18:25: WBC 11.2 H, RBC 4.84, Hgb 12.1, Hct 36.8 L, MCV 76.0 L, MCH 25.0 L, MCHC 32.9, RDW Std Deviation 37.4, RDW Coeff of Gee 13.9, Plt Count 303, MPV 11.6, Immature Gran % (Auto) 0.600, Neut % (Auto) 68.9, Lymph % (Auto) 22.3, [place] % (Auto) 7.6, Eos % (Auto) 0.3, Baso % (Auto) 0.3, Absolute Neuts (auto) 7.7, Absolute Lymphs (auto) 2.49, Nucleated RBC % 0 02/10/22 18:25: Blood Type A POSITIVE, Antibody Screen NEGATIVE Physical Exam Const alert and oriented x3 General Appearance: cooperative HEENT normocephalic Neck General: normal visual inspection GI soft to palpation and non-distended GI Narrative: Fundus firm Extremity normal to inspection and no calf tenderness Skin no rashes or lesions noted Neuro oriented x3 and CN's II-XII intact bilaterally Psych mental status grossly normal Assessment & Plan Assessment/Plan (1) , delivered: PLAN: PPD# 1 , Doing well Routine care pain mgmt ambulation dc home
--- NOTE | 2022-02-11 08:06 | PCM.DC ---
Discharge Instructions Diet Discharge Diet: No restrictions Activity May resume sexual activity in: 6-8 weeks Dressing / Incision Call your doctor if you observe: Fever of 101 or Higher, Inability to urinate, Using more than 1 pad per hour and Uncontrolled pain Follow Up Care Please Follow Up With: Taylor Arreola MD When: 1-2 weeks post and again at 6 weeks post . [phone] Test Results: Test results from this visit will be discussed in further detail at your follow-up appointment, if applicable. Discharge Plan Admission Admit Date/Time: 02/10/22 18:15 Attending Provider: Crys Power Primary Care Provider: Neel Mora Discharge Orders/Prescriptions Prescriptions: Continued acetaminophen 500 MG tablet 1,000 mg PO Q8H PRN (Reason: Pain Score 1-3/10) RF: 0 ibuprofen 600 MG tablet 600 mg PO Q6H PRN PRN (Reason: Pain Score 1-3/10) RF: 0 ferrous sulfate 140 MG tablet extended release 140 mg PO DAILY Qty: 30 RF: 1 Prenatabs FA 1 tab PO DAILY RF: 0 Referrals / Follow Up: Neel Mora MD [Primary Care Provider] - Disposition Disposition (needs filled in before D/C Order can be placed): Home, Self Care
[2022-02-11 12:25] VITALS: BP 119/66; PULSE 61; RESP 16; TEMP 36.1
[2022-02-11 15:46] VITALS: BP 116/62; PULSE 64; RESP 16; TEMP 36.3
[2022-02-11 19:45] VITALS: BP 104/55; PULSE 83; RESP 16; TEMP 36.2
== END 2022-02-11 20:10 | disposition home or self-care (01) | DRG 788 ==
LOC: WP 18:15 → WPOUT 18:17 → WP 18:17
PROVIDERS: Advanced Practice Midwife; Admitting Provider Obstetrics & Gynecology; PCP Family Medicine; Visit Provider Obstetrics & Gynecology
DX: O76 Abnormality in fetal heart rate and rhythm complicating labor and delivery (principal); O34.219 Maternal care for unspecified type scar from previous cesarean delivery; O70.1 Second degree perineal laceration during delivery; O69.81X0 Labor and delivery complicated by cord around neck, without compression, not applicable or unspecified; O62.3 Precipitate labor; O99.02 Anemia complicating childbirth; Z37.0 Single live birth
CPT/HCPCS: 59025; 59050; 85025; 86850; 86900; 86901; 99218; G0378

== ENCOUNTER 2024-02-15 01:33 | Outpatient (CLI) | payer SELFPAY ==
[2024-02-15 01:44] VITALS: BP 110/67; PULSE 91; RESP 17; TEMP 36.2; O2SAT 95
[2024-02-15 01:55] VITALS: BMI 37.1
--- NOTE | 2024-02-15 06:59 | OB.TRI.NOTE ---
HPI - General HPI Narrative BABS CALLES, is a 28 F at 38.6 weeks who presents with contractions. Denies loss of fluid or vaginal bleeding. Positive movement. PFSH PFSH Medical History (Updated 02/15/24 @ 07:05 by Jazmyne Ramirez CNM) Anemia History of concussion Hypoglycemia Home Medications Prenatabs FA 1 tab PO DAILY 09/25/19 [History Last Taken 02/14/24] acetaminophen 500 mg tablet 1,000 mg (2 x 500 mg) PO Q8H PRN Pain Score 1-310/09/19 [Rx Last Taken 02/15/24] ferrous sulfate 140 mg (45 mg iron) tablet,extended release 140 mg PO DAILY ##30 10/09/19 [Rx Last Taken Unknown] ibuprofen 600 mg tablet 600 mg PO Q6H PRN PRN Pain Score 1-310/09/19 [Rx Last Taken Unknown] Allergy/AdvReac Type Severity Reaction Status Date / Time No Known Allergies Allergy Verified 02/15/24 01:57 Surgical History (Updated 02/15/24 @ 07:05 by Jazmyne Ramirez CNM) History of tooth extraction Social History Smoking Status: Never smoker History Elective abortions Hx Para 1 Spontaneous abortions Hx # Term Pregnancies Ectopic pregnancies Hx # Pregnancies Multiple births # of living children ROS Eyes Eyes: Denies blurry vision Cardiovascular Cardiovascular: Reports none; Denies chest pain at rest, chest pain with activity or dizziness Respiratory/Chest Respiratory/Chest: Denies cough or dyspnea Gastrointestinal Gastrointestinal: Reports none and other; Denies diarrhea or vomiting Genitourinary Genitourinary: Denies dysuria Musculoskeletal Musculoskeletal: Reports none Integumentary Integumentary: Reports none; Denies rash Neurologic Neurologic: Denies dizziness, headache(s) or other visual disturbances Psychiatric Psychiatric: Reports none Physical Exam Const alert and no apparent distress General Appearance: cooperative and comfortable Exam Limitations: no limitations HEENT normocephalic Eyes General Eye: normal appearance of both eyes Neck full ROM General: normal visual inspection Chest Chest: symmetrical chest wall rise Resp normal respiratory effort and normal air movement Effort and Inspection: symmetric chest movement Auscultation: clear to auscultation bilaterally Cardio regular rate and regular rhythm GI normal to inspection, nondistended, normoactive bowel sounds Back/Spine normal ROM Extremity full ROM and no calf tenderness General Extremity: normal exam except as noted Skin no rashes or lesions noted Neuro CN's II-XII intact bilaterally Psych mental status grossly normal NST FHR Rate Baby A Baseline: 140 Variability:: Moderate Accelerations:: 15 x 15 Decelerations:: None NST Reactive:: Yes FHR Category:: Category I Uterine Activity:: Irregular Assessment & Plan (1) 38 weeks gestation of : (2) Irregular contractions: (3) History of delivery affecting : (4) History of : PLAN: Plan CE Unchanged - 1cm NST reactive, Cat. 1 tracing Desires discharge home Follow up in office for regular OB appointment
== END 2024-02-15 03:00 | disposition home or self-care (01) ==
LOC: WPOUT 01:42 → WP 01:46
PROVIDERS: PCP Family Medicine; Visit Provider Advanced Practice Midwife
DX: O47.1 False labor at or after 37 completed weeks of gestation (principal); Z3A.38 38 weeks gestation of pregnancy
CPT/HCPCS: 59025; 59050; 99221; G0378

== ENCOUNTER 2024-02-23 10:55 | Inpatient (IN) | payer SELFPAY ==
[2024-02-23] VITALS (58 sets, daily range): BP systolic 102–140; BP diastolic 57–95; PULSE 60–98; RESP 16–18; TEMP 36.1–36.7; O2SAT 96–100; BMI 37.2
[2024-02-23] MEDS: LACTATED RINGERS 500 ML 999 ML IV ×2 (10:55→11:26)
[2024-02-23 11:08] LABS: Absolute Lymphocyte Count 1.88 X10^3/uL (0.83-4.51); Absolute Neutrophil Count 7.8 X10^3/uL (2.0-7.7); Basophil# 0.02 X10^3/uL; Basophil% 0.2 % (0-1); Eosinophil# 0.07 X10^3/uL; Eosinophils% 0.7 % (0-5); Hemoglobin 11.9 g/dL (12.0-15.0); Lymphocyte # 1.88 X10^3/ul (0.83-4.51); Lymphocyte % 18.1 % (19-41); Mean Corp Hgb Conc 33.1 g/dL (32-36); Mean Corpuscular Hgb 24.9 pg (27.0-32.0); Mean Corpuscular Volume 75.5 fL (81-99); Mean Platelet Vol. 10.9 fl (6.2-12.0); Monocyte# 0.56 X10^3/uL; Monocyte% 5.4 % (0-10); NRBC Flagged by Analyzer 0 % (0-5); Neutrophil # 7.76 X10^3/uL (2.7-7.7); Neutrophil % 74.7 % (47-70); Platelet Count 261 K/mm3 (150-450); RBC Distribution Width CV 13.8 % (11.6-14.6); Red Blood Count 4.77 M/mm3 (4.2-5.4); White Blood Count 10.4 K/mm3 (4.4-11.0)
[2024-02-23] MEDS: fentaNYL-bupivacaine (epidural) 100 ML BAG EPIDURAL (11:35)
[2024-02-23 11:47] LABS: Syphilis Antibodies Non-reactive
[2024-02-23] MEDS: Lactated Ringers 1,000 ML 200 ML IV (12:03)
--- NOTE | 2024-02-23 12:29 | PCM.HP.OB ---
HPI - General General Date of Admission: 02/23/24 Date of Service: 02/23/24 Chief Complaint: Labor HPI Narrative BABS CALLES, is a 28 F who presents Frequent contractions. Previous c/s for failure to progress. since with spontaneous labor. Would like to try again. Maternal Data Information Final MANDIE: 02/23/24 Gestational age: 40 PFSH PFSH Medical History Anemia History of concussion Hypoglycemia Home Medications Prenatabs FA 1 tab PO DAILY 09/25/19 [History Last Taken 02/22/24 11:00 1 tab] acetaminophen 500 mg tablet 1,000 mg (2 x 500 mg) PO Q8H PRN Pain Score 1-12/2310/09/19 [Rx Last Taken 02/15/24] ferrous sulfate 140 mg (45 mg iron) tablet,extended release 140 mg PO DAILY ##30 10/09/19 [Rx Last Taken Unknown] ibuprofen 600 mg tablet 600 mg PO Q6H PRN PRN Pain Score 1-12/2310/09/19 [Rx Last Taken Unknown] Allergy/AdvReac Type Severity Reaction Status Date / Time No Known Allergies Allergy Verified 02/23/24 10:58 Family History no significant family his Surgical History History of surgery History of tooth extraction Social History Smoking Status: Never smoker History Elective abortions Hx Para 2 Spontaneous abortions Hx # Term Pregnancies Ectopic pregnancies Hx # Pregnancies Multiple births # of living children NST FHR Rate Baby A Baseline: 145 Variability:: Moderate Accelerations:: 15 x 15 Decelerations:: None NST Reactive:: Yes FHR Category:: Category I Uterine Activity:: q 3-4 ROS Constitutional Constitutional: Denies fatigue, fever(s) or malaise Eyes Eyes: Denies change in vision ENT HEENT: Denies dizziness or headache(s) Cardiovascular Cardiovascular: Denies chest pain, dyspnea or lightheadedness Respiratory/Chest Respiratory/Chest: Denies cough or dyspnea Gastrointestinal Gastrointestinal: Denies change in bowel habits Genitourinary Genitourinary: Denies burning urination or genital lesions Integumentary Integumentary: Denies rash Neurologic Neurologic: Denies confusion, dizziness, headache(s), numbness or weakness Vital Signs Vital Signs Vital Signs: 02/23/24 11:22 02/23/24 11:22 02/23/24 11:23 Temperature Temperature Source Pulse Rate 86 Respiratory Rate Blood Pressure 123/95 H BP Systolic 123 BP Diastolic 95 Pulse Ox 97 02/23/24 11:23 02/23/24 11:27 02/23/24 11:27 Temperature Temperature Source Pulse Rate 91 89 Respiratory Rate Blood Pressure 140/90 H BP Systolic 140 BP Diastolic 90 Pulse Ox 02/23/24 11:27 02/23/24 11:32 02/23/24 11:32 Temperature Temperature Source Pulse Rate 93 Respiratory Rate Blood Pressure BP Systolic BP Diastolic Pulse Ox 100 97 02/23/24 11:33 02/23/24 11:33 02/23/24 11:37 Temperature Temperature Source Pulse Rate 93 88 Respiratory Rate Blood Pressure 120/77 BP Systolic 120 BP Diastolic 77 Pulse Ox 02/23/24 11:37 02/23/24 10:45 02/23/24 10:45 Temperature Temperature Source Temporal Pulse Rate Respiratory Rate Blood Pressure 118/76 BP Systolic 118 BP Diastolic 76 Pulse Ox 98 02/23/24 10:45 02/23/24 10:45 02/23/24 10:45 Temperature Temperature Source Pulse Rate 74 Respiratory Rate 18 Blood Pressure BP Systolic BP Diastolic Pulse Ox 98 02/23/24 10:45 02/23/24 11:42 02/23/24 11:42 Temperature 97.6 F L Temperature Source Pulse Rate 90 Respiratory Rate Blood Pressure BP Systolic BP Diastolic Pulse Ox 97 02/23/24 11:43 02/23/24 11:43 02/23/24 11:47 Temperature Temperature Source Pulse Rate 88 91 Respiratory Rate Blood Pressure 113/74 BP Systolic 113 BP Diastolic 74 Pulse Ox 02/23/24 11:47 02/23/24 11:49 02/23/24 11:49 Temperature Temperature Source Pulse Rate 86 Respiratory Rate Blood Pressure 113/67 BP Systolic 113 BP Diastolic 67 Pulse Ox 97 02/23/24 11:52 02/23/24 11:52 02/23/24 11:54 Temperature Temperature Source Pulse Rate 86 Respiratory Rate Blood Pressure 120/78 BP Systolic 120 BP Diastolic 78 Pulse Ox 96 02/23/24 11:54 02/23/24 11:57 02/23/24 11:57 Temperature Temperature Source Pulse Rate 88 89 Respiratory Rate Blood Pressure BP Systolic BP Diastolic Pulse Ox 98 02/23/24 11:59 02/23/24 11:59 02/23/24 11:32 Temperature Temperature Source Pulse Rate 90 Respiratory Rate 16 Blood Pressure 126/74 H BP Systolic 126 BP Diastolic 74 Pulse Ox 02/23/24 11:22 02/23/24 11:54 02/23/24 11:49 Temperature Temperature Source Pulse Rate Respiratory Rate 18 16 16 Blood Pressure BP Systolic BP Diastolic Pulse Ox 02/23/24 11:42 02/23/24 11:27 02/23/24 12:28 Temperature Temperature Source Pulse Rate Respiratory Rate 16 16 Blood Pressure 116/68 BP Systolic 116 BP Diastolic 68 Pulse Ox 02/23/24 12:28 Temperature Temperature Source Pulse Rate 91 Respiratory Rate Blood Pressure BP Systolic BP Diastolic Pulse Ox Weight Weight: 107.501 kg Body Mass Index (BMI) 37.2 Physical Exam Const alert and oriented x3 General Appearance: cooperative and comfortable HEENT normocephalic Eyes PERRL and EOMs intact bilaterally Neck full ROM Cardio regular rate and regular rhythm Manual OB Exam: dilated 6, effaced 90 and station -1 Neuro moves all extremities Psych mental status grossly normal Labs Labs Labs: Blood Type A POSITIVE Antibody Screen NEGATIVE Hct 36.0 % (37-47) L Hgb 11.9 g/dL (12.0-15.0) L Syphilis Total Ab Non-reactive Rhogam given: No Assessment & Plan (1) History of : (2) History of delivery affecting : (3) 40 weeks gestation of : PLAN: Plan Expectant management
--- NOTE | 2024-02-23 12:39 | PN.OBGYN_ITS ---
Subjective Subjective AROM for clear fluid. Epidural in place. Objective Data Objective Data Vital Signs: Vital Signs Temp Pulse Resp BP Pulse Ox 97.6 F L 91 16 116/68 98 02/23/24 12:28 02/23/24 12:28 02/23/24 12:28 02/23/24 12:28 02/23/24 11:57 Weight: 107.501 kg Body Mass Index (BMI) 37.2 Intake & Output: Intake and Output for Last 24 Hours 02/21/24 02/22/24 02/23/24 23:59 23:59 23:59 Intake Total 1000 / 1000 Balance 1000 / 1000 Lab / Micro Data 02/23/24 10:50 Labs: Laboratory Results - last 24 hr 02/23/24 10:50: WBC 10.4, RBC 4.77, Hgb 11.9 L, Hct 36.0 L, MCV 75.5 L, MCH 24.9 L, MCHC 33.1, RDW Std Deviation 37.0, RDW Coeff of Gee 13.8, Plt Count 261, MPV 10.9, Immature Gran % (Auto) 0.900, Neut % (Auto) 74.7 H, Lymph % (Auto) 18.1 L, [place] % (Auto) 5.4, Eos % (Auto) 0.7, Baso % (Auto) 0.2, Absolute Neuts (auto) 7.8 H, Absolute Lymphs (auto) 1.88, Nucleated RBC % 0, Syphilis Total Ab Non- reactive, Blood Type A POSITIVE, Antibody Screen NEGATIVE ROS Constitutional Constitutional: Denies fatigue, fever(s) or malaise Eyes Eyes: Denies change in vision ENT HEENT: Denies dizziness or headache(s) Respiratory/Chest Respiratory/Chest: Denies cough or dyspnea Gastrointestinal Gastrointestinal: Denies change in bowel habits Genitourinary Genitourinary: Denies burning urination or genital lesions Integumentary Integumentary: Denies rash Neurologic Neurologic: Denies confusion, dizziness, headache(s), numbness or weakness NST FHR Rate Baby A Baseline: 145 Variability:: Moderate Accelerations:: 15 x 15 Decelerations:: None NST Reactive:: Yes FHR Category:: Category I Uterine Activity:: q 3
[2024-02-23] MEDS: Oxytocin 10 UNITS/ML Vial IM (13:57)
[2024-02-23] MEDS: Oxytocin 15 Units/NS 250ml 15 UNITS/250 ML IV.SOLN 83 UNITS IV (14:02)
--- NOTE | 2024-02-23 14:10 | EX.PCM.OBRPT ---
Assessment & Plan (1) , delivered: (2) 40 weeks gestation of : Maternal Data Information Final MANDIE: 02/23/24 Gestational age: 40 Vaginal Delivery Maternal Presentation Maternal Presentation: Active Labor Maternal Presentation: 4 cm BBOW Type of Induction: Amniotomy Operative Information Date of Procedure: 02/23/24 Pre-Operative Diagnosis: Active labor TOLAC Post-Operative Diagnosis: same Surgery / Procedure Performed: Spontaneous Vaginal Delivery Type of Anesthesia: Epidural Estimated Blood Loss: 100 cc Time of Delivery: 13:57 Findings Description of Procedure: Patient pushed through two contractions over an intact perineum. Delivered the head ROP. The anterior and posterior shoulders delivered easily. The infant cried upon delivery. The was placed on the maternal abdomen. The cord was clamped and cut. The placenta delivered spontaneously. A second degree laceration was repaired with 3-0 Vicryl. Presentation: Vertex and ROP Amniotic Membrane Rupture Type: Artificial Amniotic Fluid Description: Clear Placental Delivery Description: Spontaneous Placenta Disposition: [facility] Cord Vessel Description: 3 Vessels Cord Entanglement: None Infant A Gender: Female (1 minute): 8 (5 minute): 9 Delayed Cord Clamping: Yes Post Vaginal Delivery Medications Given After Delivery: IV Pitocin and IM Pitocin Episiotomy Description: None Laceration: Midline and 2nd degree Complication Complications: None
[2024-02-23] MEDS: Benzocaine/Lanolin/Aloe Vera 1 SPRAY EACH TOPICAL (20:30)
[2024-02-24] VITALS (7 sets, daily range): BP systolic 101–146; BP diastolic 50–76; PULSE 58–88; RESP 16; TEMP 36.2–36.7; O2SAT 96–100
[2024-02-24] MEDS: Acetaminophen 500 MG Tablet 1000 MG PO (02:18)
--- NOTE | 2024-02-24 08:24 | PN.OBGYN_ITS ---
Subjective Subjective Feels good. Breast feeding well. Pain controlled. Minimal lochia. Objective Data Objective Data Vital Signs: Vital Signs Temp Pulse Resp BP Pulse Ox O2 Del Method 98.1 F 88 16 146/67 H 100 Room Air 02/24/24 03:34 02/24/24 03:36 02/24/24 03:34 02/24/24 03:36 02/24/24 03:34 02/24/24 03:34 Oxygen Delivery Method Room Air Weight: 107.501 kg Body Mass Index (BMI) 37.2 Intake & Output: Intake and Output for Last 24 Hours 02/22/24 02/23/24 02/24/24 23:59 23:59 23:59 Intake Total 1623.33 / 1623.33 Output Total 700 / 700 Balance 923.33 / 923.33 Lab / Micro Data 02/23/24 10:50 Labs: Laboratory Results - last 24 hr 02/23/24 10:50: WBC 10.4, RBC 4.77, Hgb 11.9 L, Hct 36.0 L, MCV 75.5 L, MCH 24.9 L, MCHC 33.1, RDW Std Deviation 37.0, RDW Coeff of Gee 13.8, Plt Count 261, MPV 10.9, Immature Gran % (Auto) 0.900, Neut % (Auto) 74.7 H, Lymph % (Auto) 18.1 L, [place] % (Auto) 5.4, Eos % (Auto) 0.7, Baso % (Auto) 0.2, Absolute Neuts (auto) 7.8 H, Absolute Lymphs (auto) 1.88, Nucleated RBC % 0, Syphilis Total Ab Non- reactive, Blood Type A POSITIVE, Antibody Screen NEGATIVE Physical Exam Const alert and no apparent distress Narrative: Fundus firm, below umbilicus. Assessment & Plan (1) , delivered: PLAN: Plan Anticipate discharge this afternoon
--- NOTE | 2024-02-24 08:32 | DS.PCM_ITS ---
Providers Date of Admission: 02/23/24 Date of Discharge: 02/24/24 Primary Care Physician: Dr. Neel Mora MD Reason For Visit: VAGINAL DELIVERY Diagnosis Discharge Diagnosis (1) , delivered: Status: Acute Code(s): O34.219 - Maternal care for unspecified type scar from previous delivery Plan Anticipate discharge this afternoon Medications at Discharge Home Medications Prenatabs FA 1 tab PO DAILY 09/25/19 ferrous sulfate 140 mg (45 mg iron) tablet,extended release 140 mg PO DAILY ##30 10/09/19 ibuprofen 600 mg tablet 600 mg PO Q6H PRN PRN Pain Score 1-3/10 10/09/19 acetaminophen 500 mg tablet 1,000 mg (2 x 500 mg) PO Q6H PRN PRN Pain 1-10 Or Fever #30 tabs 02/24/24 Hospital Course Operations None Procedures None Summary of Care Provided Minutes Spent on Discharge: 22 Hospital Course: Admitted in spontaneous labor. AROM for augmentation no Pitocin needed. and uncomplicated course Physical Exam Const alert and no apparent distress Narrative: Fundus firm, below umbilicus. Weight / BMI Weight Weight: 107.501 kg Body Mass Index (BMI) 37.2 ABG / Lab / Microbiology Data 02/23/24 10:50 Laboratory: Laboratory Results - last 24 hr 02/23/24 10:50: WBC 10.4, RBC 4.77, Hgb 11.9 L, Hct 36.0 L, MCV 75.5 L, MCH 24.9 L, MCHC 33.1, RDW Std Deviation 37.0, RDW Coeff of Gee 13.8, Plt Count 261, MPV 10.9, Immature Gran % (Auto) 0.900, Neut % (Auto) 74.7 H, Lymph % (Auto) 18.1 L, [place] % (Auto) 5.4, Eos % (Auto) 0.7, Baso % (Auto) 0.2, Absolute Neuts (auto) 7.8 H, Absolute Lymphs (auto) 1.88, Nucleated RBC % 0, Syphilis Total Ab Non- reactive, Blood Type A POSITIVE, Antibody Screen NEGATIVE D/C Instructions May resume sexual activity in: 6 weeks Please Follow Up With: Sarah Suarez MD When: Follow up with our office in 1-2 and 6 weeks or as needed. [phone] Meaningful Use Info Meaningful Use Meaningful Use Diagnoses (Choose all that apply): None applicable Ischemic Stroke Statin Dosing Therapy Reference: STATIN DOSE THERAPY REFERENCE: * Patients > 75 years receive moderate or high dose statin therapy. * Patients 75 years or YOUNGER should receive HIGH intensity statin dose unless contraindicated. You will be required to document reason for non-treatment if statin daily dose does not meet guidelines. HIGH DOSE STATIN THERAPY DAILY Atorvastatin > than or = to 40 mg Rosuvastatin > than or = to 20 mg Amlodipine + Atorvastatin > than or = to 2.5/40 mg Ezetimibe + Simvastatin 10/80 mg Simvastatin 80mg Discharge Plan Admission Admit Date/Time: 02/23/24 10:55 Primary Reason for Your Visit: labor Attending Provider: Loren Galvan Primary Care Provider: Neel Mora Discharge Orders/Prescriptions Prescriptions: New acetaminophen 500 mg Tablet 1,000 mg PO Q6H PRN PRN (Reason: Pain 1-10 Or Fever) Qty: 30 0RF Continued ibuprofen 600 MG tablet 600 mg PO Q6H PRN PRN (Reason: Pain Score 1-3/10) 0RF ferrous sulfate 140 MG tablet extended release 140 mg PO DAILY Qty: 30 1RF Prenatabs FA 1 tab PO DAILY Discontinued acetaminophen 500 MG tablet 1,000 mg PO Q8H PRN (Reason: Pain Score 1-3/10) 0RF Referrals / Follow Up: Neel Mora MD [Primary Care Provider] - Disposition Disposition (needs filled in before D/C Order can be placed): Home, Self Care
== END 2024-02-24 15:20 | disposition home or self-care (01) | DRG 807 ==
PROVIDERS: Admitting Provider Obstetrics & Gynecology; PCP Family Medicine; Referring Provider Obstetrics & Gynecology; Visit Provider Obstetrics & Gynecology
DX: O34.219 Maternal care for unspecified type scar from previous cesarean delivery (principal); Z37.0 Single live birth; O70.1 Second degree perineal laceration during delivery; Z3A.40 40 weeks gestation of pregnancy
CPT/HCPCS: 59025; 59050; 85025; 86780; 86850; 86900; 86901; 99221; J7120; G0378